=== PATIENT | female | born 1980 | race Caucasian/White ===

== ENCOUNTER 2023-08-07 18:33 | Emergency (ER) | payer OTHER, SELFPAY ==
[2023-08-07 18:36] VITALS: BP 143/91
--- NOTE | 2023-08-07 19:39 | ED.GENMED ---
History of Present Illness
General
Chief Complaint: Eye Problems
Source: patient
Time Seen by Provider: 08/07/23 19:22
Travel History
Have you had any contact with someone who has COVID-19?: No
Do you have any symptoms of coronavirus? Fever > 100 degrees, chills, cough, shortness of breath, sore throat, loss of taste or smell, muscle aches, or headache?: No
History of Present Illness
History of Present Illness:
43-year-old female presenting to the emergency department for evaluation of left eye pain, visual loss, redness and tearing. She states she has a history of corneal abrasion and that this feels similar. She does not use contact lenses or glasses.
She works as a take out waiter/waitress and stage she did not get anything into her eye or know how this may have occurred. She denies any facial rashes. No other concerns at this time.
Past History
Past History
ED Past Medical History: Psychiatric (manic depressive bipolar disorder) and Other (Premature delivers X3, Methadone)
ED Past Surgical History: and Gynecological (Cervical CA with Lep procedure X2)
Social History
Tobacco: Smoker
Alcohol: None
Drug: Former user (Former cocaine abuse, for opiate abuse)
Personal: Single
Living: with family
Employment: Not employed
Family History
Family History: Hypertension
Review of Systems
Review of Systems
All Other Systems: ROS reviewed and negative except as documented in HPI and ROS
Phy Exam
Physical Exam
Physical Exam:
GENERAL: Alert , in no apparent distress
EYE: conjunctiva cloudy on the left eye, erythematous and injected, gross vision unable to be assessed to the left eye, patient reports normal to the right eye
Visual acuity: Left eye 20/200, right eye 20/30
Fluorescein stain, uptake measuring approximately 2 mm at the 9 o'clock position along the lateral portion of the iris concerning for corneal ulcer. No dendritic lesions
Tonometry measurements: Affected left eye measures 11
Slit-lamp exam: Confirms suspicion for corneal ulceration
Head: Normocephalic atraumatic
NECK: Supple,
ENT: mmm.
LUNGS: no acute respiratory distress
NEUROLOGICAL: Alert and oriented
SKIN: Warm and dry, skin intact.
MUSCULOSKELETAL: well perfused.
PSYCH: Normal and appropriate interaction.
Scores
Heart Failure Risk
Heart Failure Risk Score: Not Applicable
Heart Score for Chest Pain Patients
STEMI patient?: Not applicable
Withdrawal Assessment of Alcohol
Withdrawal Assessment Completed?: Not applicable
Course
Orders/Labs/Results
Orders:
Orders
08/07/23 19:34
Fluorescein Sodium [Ful-Sumaya] 3 mg .ROUTE .STK-MED ONE
Tetracaine HCl [Tetracaine 0.5% Ophthalmic Solution] 1 drop .ROUTE .STK-MED ONE
08/07/23 19:39
Visual Acuity- Treatment ONCE
08/07/23 19:52
Ofloxacin [Ocuflox] See Dose Instructions OPHTH NOW STA
08/07/23 22:00
Ofloxacin [Ocuflox] See Dose Instructions OPHTH QID
Vital Signs
Initial and Last Documented VS:
Initial Vital Signs
Temp Pulse Resp BP Pulse Ox
97.9 F 91 16 143/91 99
08/07/23 18:36 08/07/23 18:36 08/07/23 18:36 08/07/23 18:36 08/07/23 18:36
Last Documented Vital Signs
Temp Pulse Resp BP Pulse Ox
97.9 F 91 16 143/91 99
08/07/23 18:36 08/07/23 18:36 08/07/23 18:36 08/07/23 18:36 08/07/23 18:36
MDM/Problems Addressed
Differential Diagnosis Includes:
Foreign body, corneal ulcer, corneal abrasion, glaucoma, iritis
MDM/Problems Addressed:
43-year-old female presenting emergency department with 2 days of left eye erythema and visual disturbance, significant pain as well. Tetracaine was instilled with full resolution of pain. Slit-lamp exam confirms suspicion for corneal ulceration.
Due to the nature of the injury as well as visual disturbance I did contact ophthalmology on-call, Dr. Brown, who would like patient prescribed moxifloxacin to be instilled 1 drop in the affected left eye every hour while patient is awake. He was
provided with the patient's tach information and will ensure that the office staff reaches out to the patient to get the patient into the office tomorrow for an appointment. Patient is agreeable with this plan. Aware of return precautions
emergency department. Stable for discharge home.
Of note, we did not have moxifloxacin in our formulary so patient was treated with Ocuflox here.
*Pulse Oximetry
Patient hypoxic: no
*Critical Care Note
Total Time (30-74mins, 75-104mins- exclusive of procedures): Not Applicable
Patient Management
Discussion with other providers: Stone Rigger
ED Attending Note
-
Portions of this chart may have been created with voice recognition software.� Occasional wrong word or��sound alike� substitutions may have occurred due to the inherent limitations of voice recognition software.
Discharge Plan
Departure
Patient Disposition: Home (Routine Discharge)
Date of Disposition: 08/07/23
Time of Disposition: 19:42
Patient with high blood pressure during this ER visit?: No
Discharge Problem:
Corneal ulcer of left eye
Instructions: Corneal Ulcer (DC)
Prescriptions:
New
moxifloxacin 0.5 % drops
See Rx Instructions .ROUTE .COMPLEX Qty: 5 0RF
Rx Instructions:
1 drp into the affected eye while awake
No Action
multivitamin [Daily Multiple] 1 EACH tablet
1 ea PO DAILY
methadone [Methadose] 100 MG/10 ML concentrate
100 mg PO DAILY
Methadone 100 mg/10 ml:
85 mg PO HS
oxycodone-acetaminophen 5 MG/325 MG tablet
1 - 2 tab PO Q3HPRN PRN (Reason: severe pain) Qty: 30 0RF
ibuprofen 600 MG tablet
600 mg PO Q4HPRN PRN (Reason: moderate pain/cramps) Qty: 0 0RF
Referrals:
Michelle Brown MD [Active] -
Interventions
Interventions:
*ED COVID-19 Vaccine History Last Done: 08/07/23 18:36
Discharge Date and Time
Print Language: GEORGIAN
[2023-08-07] MEDS: OCUFLOX 2 DROP OPHTH (20:11)
== END 2023-08-07 20:30 | disposition home or self-care (01) ==
LOC: EMR 18:33
PROVIDERS: EMERGENCY PHYSICIAN Emergency Medicine; FAMILY PHYSICIAN Internal Medicine
DX: H16.002 Unspecified corneal ulcer, left eye (principal); F31.9 Bipolar disorder, unspecified; F17.200 Nicotine dependence, unspecified, uncomplicated; Z85.41 Personal history of malignant neoplasm of cervix uteri
CPT/HCPCS: 99283

== ENCOUNTER 2025-01-25 23:38 | Emergency (ER) | payer OTHER, SELFPAY ==
[2025-01-25 23:38] VITALS: BMI 29.1
[2025-01-25 23:43] VITALS: BP 100/70
[2025-01-26] VITALS: BP 121/73
[2025-01-26 00:24] VITALS: BP 121/73
[2025-01-26 01:22] LABS: Hematocrit 34.3 % (37.0-47.0); Hemoglobin 11.7 g/dL (12.0-16.0); Mean Corp Hgb Conc. 34.1 g/dL (33.0-37.0); Mean Corpuscular Volume 81.7 fL (81.0-99.0); Nucleated Red Blood Cells % 0 %; Platelet Count 334 10^3/uL (130-400); Red Cell Dist. Width 14.1 % (11.5-14.5)
[2025-01-26] MEDS: DILAUDID 0.5 MG IV (01:22)
[2025-01-26] MEDS: NSS 1000 IV (01:26)
[2025-01-26 01:40] LABS: ALT (SGPT) 29 U/L (0-35); AST (SGOT) 23 U/L (14-36); Albumin 3.6 g/dl (3.5-5.0); Alkaline Phosphatase 124 U/L (38-126); Blood Urea Nitrogen 8 mg/dl (7-17); Calcium 8.4 mg/dl (8.4-10.2); Carbon Dioxide 26 mmol/L (22-30); Chloride 101 mmol/L (98-107); Estimated Creatinine Clearance 93 ml/min; Glucose 121 mg/dl (70-99); Lipase 28 U/L (23-300); Potassium 3.9 mmol/L (3.5-5.1); Sodium 130 mmol/L (135-145); Total Protein 6.7 g/dl (6.3-8.2); eGFR > 60.00
--- NOTE | 2025-01-26 01:50 | ED.GENMED ---
History of Present Illness
<Raven Gentile NP - Last Filed: 01/27/25 15:49>
General
Chief Complaint: Flank Pain
Source: patient
Exam Limitations: none
Time Seen by Provider: 01/26/25 00:47
Nursing documentation reviewed up to this point in time: agreed with
History of Present Illness
History of Present Illness:
Patient to emergency department for evaluation of RLQ, right flank pain. She reports her symptoms started last night and continued to worsen today. She reports urinary frequency. She denies fever or chills. Reports nausea but no vomiting.
Past History
<Raven Gentile NP - Last Filed: 01/27/25 15:49>
Past History
ED Past Medical History: Psychiatric (manic depressive bipolar disorder) and Other (Premature delivers X3, Methadone)
ED Past Surgical History: and Gynecological (Cervical CA with Lep procedure X2)
Social History
Tobacco: Smoker
Alcohol: None
Drug: Former user (Former cocaine abuse, for opiate abuse)
Personal: Single
Living: with family
Employment: Not employed
Family History
Family History: Hypertension
Review of Systems
<Raven Gentile SCAFFOLDING HELPER - Last Filed: 01/27/25 15:49>
Review of Systems
Allergies reviewed?: Yes
All Other Systems: ROS reviewed and negative except as documented in HPI and ROS
Constitutional: Reports no symptoms
EENT: Reports no symptoms
Respiratory: Reports no symptoms
Cardiac: Reports no symptoms
ABD/GI: Reports abdominal pain (RLQ, right flank)
: Reports dysuria, frequency and flank pain
Musculoskeletal: Reports no symptoms
Skin: Reports no symptoms
Neurological: Reports no symptoms
Psychiatric: Reports no symptoms
Phy Exam
<Raven Gentile NP - Last Filed: 01/27/25 15:49>
General Physical Exam
General Presentation: moderate distress
General age: appears stated age
General Skin: warm and dry
General Habitus: normal
General Mental: alert
Cardiovascular Exam
Cardiovascular Exam: regular rate/rhythm and no edema
Pulmonary Exam
Pulmonary Exam: lungs clear and no respiratory distress
Gastrointestinal Exam
Gastrointestinal Exam: soft, no organomegaly, no pulsatile mass and non distended
Palpation: left upper quadrant: No tenderness, left lower quadrant: No tenderness, right upper quadrant: No tenderness and right lower quadrant: Moderate tenderness
Musculoskeletal Exam
Musculoskeletal Exam: full ROM and neuro vasc intact
Skin Exam
Skin Exam: normal color, warm/dry and no rash
Psychiatric Exam
Psychiatric Exam: normal mood/affect
Sepsis
<Raven Gentile SCAFFOLDING HELPER - Last Filed: 01/27/25 15:49>
Sepsis Screening
Sepsis Assessment: Sepsis Ruled Out
Sepsis Screen
Sepsis Screen: Sepsis Ruled Out
Date: 01/27/25
Time: 15:49
Course
<Raven Gentile SCAFFOLDING HELPER - Last Filed: 01/27/25 15:49>
Orders/Labs/Results
Orders:
Orders
01/25/25 23:46
Urinalysis Reflex To Culture Urgent
Date Specimen was Collected: 01/25/25
Time Specimen was Collected: 23:46
01/26/25 00:51
HYDROmorphone [Dilaudid] 0.5 mg IV NOW STA
01/26/25 00:52
0.9% Sodium Chloride 1000 ml [Nss] 1,000 ml IV BOLUS
01/26/25 00:53
CT Abd/pelvis W Iv Cont Urgent
Comment:
Reason For Exam: RLQ abd. pain
01/26/25 01:11
Comprehensive Metabolic Panel Urgent
HCG, Serum Qualitative Screen Urgent
Comment: ADD ON
Lipase Urgent
01/26/25 01:12
Complete Blood Count/With Diff Urgent
01/26/25 02:02
Add On- LAB Urgent
Tests Added?: HCG serum qualitative
01/26/25 05:14
Urine Microscopic Reflex Cult Urgent
Urine Culture Urgent
KAMI Source: U
Specimen Description:
Date Specimen was Collected: 01/25/25
Time Specimen was Collected: 23:46
01/26/25 05:55
CefTRIAXone [Rocephin] 2,000 mg IV NOW STA
01/26/25 06:02
Sterile Water [Sterile Water For Injection] 20 ml .ROUTE .STK-MED
01/26/25 06:04
Ibuprofen [Motrin] 800 mg PO NOW STA
Abnormal Lab Results
01/26/25 01/26/25 01/26/25
01:11 01:12 05:14
WBC 13.2 H 10^3/uL
(4.8-10.8)
Hgb 11.7 L g/dL
(12.0-16.0)
Hct 34.3 L %
(37.0-47.0)
Abs Immat Gran (auto) 0.1 H 10^3/uL
(0-0.05)
Absolute Neuts (auto) 10.8 H 10^3/uL
(1.4-6.5)
Absolute Monos (auto) 1.0 H 10^3/uL
(0.1-0.6)
Immature Gran % 0.6 H %
(0-0.5)
Neutrophils % 82.0 H %
(42.2-75.2)
Lymphocytes % 8.8 L %
(20.5-51.1)
Sodium 130 L mmol/L
(135-145)
Glucose 121 H mg/dl
(70-99)
Urine Ketones 1+ A
(Negative)
Ur Occult Blood Reflex 3+ A
(Negative)
Urine Nitrite (Reflex) Positive A
(Negative)
Leukocyte Esterase Rfl 2+ A
(Negative)
Urine RBC 11-15 A /HPF
(0-2)
Urine WBC (Reflex) 40-50 A /HPF
(0-5)
Urine Bacteria (Reflex) Moderate A
(Negative)
Urine Albumin (Reflex) 2+ A
(Neg - Trace)
01/26/25 01:12
01/26/25 01:11
Vital Signs
Initial and Last Documented VS:
Initial Vital Signs
Temp Pulse Resp BP Pulse Ox
98.8 F 107 20 100/70 96
01/25/25 23:43 01/25/25 23:43 01/25/25 23:43 01/25/25 23:43 01/25/25 23:43
Last Documented Vital Signs
Temp Pulse Resp BP Pulse Ox
99.8 F 92 20 109/63 94
01/26/25 05:10 01/26/25 05:10 01/26/25 05:10 01/26/25 05:10 01/26/25 05:10
<Inocencia Mckinney, DO - Last Filed: 01/26/25 06:14>
Orders/Labs/Results
Orders:
Orders
01/25/25 23:46
Urinalysis Reflex To Culture Urgent
Date Specimen was Collected: 01/25/25
Time Specimen was Collected: 23:46
01/26/25 00:51
HYDROmorphone [Dilaudid] 0.5 mg IV NOW STA
01/26/25 00:52
0.9% Sodium Chloride 1000 ml [Nss] 1,000 ml IV BOLUS
01/26/25 00:53
CT Abd/pelvis W Iv Cont Urgent
Comment:
Reason For Exam: RLQ abd. pain
01/26/25 01:11
Comprehensive Metabolic Panel Urgent
HCG, Serum Qualitative Screen Urgent
Comment: ADD ON
Lipase Urgent
01/26/25 01:12
Complete Blood Count/With Diff Urgent
01/26/25 02:02
Add On- LAB Urgent
Tests Added?: HCG serum qualitative
01/26/25 05:14
Urine Microscopic Reflex Cult Urgent
Urine Culture Urgent
KAMI Source: U
Specimen Description:
Date Specimen was Collected: 01/25/25
Time Specimen was Collected: 23:46
01/26/25 05:55
CefTRIAXone [Rocephin] 2,000 mg IV NOW STA
01/26/25 06:02
Sterile Water [Sterile Water For Injection] 20 ml .ROUTE .STK-MED
01/26/25 06:04
Ibuprofen [Motrin] 800 mg PO NOW STA
Abnormal Lab Results
01/26/25 01/26/25 01/26/25
01:11 01:12 05:14
WBC 13.2 H 10^3/uL
(4.8-10.8)
Hgb 11.7 L g/dL
(12.0-16.0)
Hct 34.3 L %
(37.0-47.0)
Abs Immat Gran (auto) 0.1 H 10^3/uL
(0-0.05)
Absolute Neuts (auto) 10.8 H 10^3/uL
(1.4-6.5)
Absolute Monos (auto) 1.0 H 10^3/uL
(0.1-0.6)
Immature Gran % 0.6 H %
(0-0.5)
Neutrophils % 82.0 H %
(42.2-75.2)
Lymphocytes % 8.8 L %
(20.5-51.1)
Sodium 130 L mmol/L
(135-145)
Glucose 121 H mg/dl
(70-99)
Urine Ketones 1+ A
(Negative)
Ur Occult Blood Reflex 3+ A
(Negative)
Urine Nitrite (Reflex) Positive A
(Negative)
Leukocyte Esterase Rfl 2+ A
(Negative)
Urine RBC 11-15 A /HPF
(0-2)
Urine WBC (Reflex) 40-50 A /HPF
(0-5)
Urine Bacteria (Reflex) Moderate A
(Negative)
Urine Albumin (Reflex) 2+ A
(Neg - Trace)
01/26/25 01:12
01/26/25 01:11
Vital Signs
Initial and Last Documented VS:
Initial Vital Signs
Temp Pulse Resp BP Pulse Ox
98.8 F 107 20 100/70 96
01/25/25 23:43 01/25/25 23:43 01/25/25 23:43 01/25/25 23:43 01/25/25 23:43
Last Documented Vital Signs
Temp Pulse Resp BP Pulse Ox
99.8 F 92 20 109/63 94
01/26/25 05:10 01/26/25 05:10 01/26/25 05:10 01/26/25 05:10 01/26/25 05:10
<Raven Gentile NP - Last Filed: 01/27/25 15:49>
*Pulse Oximetry
SaO2: 97
Oxygen Mode of Delivery: Room air
<Inocencia Mckinney DO - Last Filed: 01/26/25 06:14>
*Radiology
Radiology exam reviewed: radiology read reviewed
*Pulse Oximetry
Patient hypoxic: no
*Critical Care Note
Total Time (30-74mins, 75-104mins- exclusive of procedures): Not Applicable
ED Attending Note
<Raven Gentile NP - Last Filed: 01/27/25 15:49>
-
Portions of this chart may have been created with voice recognition software.� Occasional wrong word or��sound alike� substitutions may have occurred due to the inherent limitations of voice recognition software.
<Inocencia Mckinney DO - Last Filed: 01/26/25 06:14>
ED Attending Note
Patient seen and examined by attending physician: Yes
I performed a history and physical exam of patient and discussed management with resident, I reviewed resident's note and agree with documented findings and plan of care.: Yes
ED Attending Note:
44-year-old woman presents with right flank pain that began yesterday, worse tonight. She notes urinary urgency and mild dysuria this evening. No history of similar episodes in the past. No history of UTI, pyelonephritis nor kidney stones in the
past.
Remote history of opioid use disorder, successfully treated with methadone which has since been discontinued since 2022.
Low-grade fever noted initially. Now has trended up to 100 �F.
44-year-old woman appears somewhat older than stated age, bright and alert, mildly ill in appearance but easily communicative.
HEENT: Oral mucosa is moist.
Abdomen: Soft, moderate tenderness right lateral mid abdomen, moderate tenderness right flank.
Labs notable for elevated white blood cell count of 13.2. Mild hyponatremia at 130. Normal BUN and creatinine. Normal lactic acid.
CT concerning for right pyelonephritis. Normal appendix.
Urinalysis consistent with UTI.
History and exam consistent with acute pyelonephritis.
Pain is markedly improved after 1 IV dose of Dilaudid. She denies nausea.
We discussed options for hospitalization for IV fluids, IV antibiotics and pain medication, versus trial of discharge to home with oral antibiotics, oral pain medication.
Patient elects to be discharged to home.
Will give an IV dose of Rocephin and plan for 14-day course of Augmentin.
Will write a prescription for ibuprofen 800 mg for as needed pain and fever as well as a small prescription for Percocet. Patient states she has had small prescriptions for narcotic pain medications without recurrent narcotic abuse issues.
Discussed importance of remaining well-hydrated on a daily basis and also discussed strict return precautions.
Discharge Plan
Departure
Patient Disposition: Home (Routine Discharge)
Date of Disposition: 01/26/25
Time of Disposition: 06:14
Patient with high blood pressure during this ER visit?: No
Condition: Good
Discharge Problem:
Acute pyelonephritis
Instructions: Urinary tract infection in adults - ED (DC)
Prescriptions:
New
amoxicillin-pot clavulanate 875-125 mg tablet
1 tab PO BID Qty: 28 0RF
ibuprofen 800 mg tablet
800 mg PO QIDPRN PRN (Reason: pain, fever) Qty: 30 0RF
oxycodone-acetaminophen [Percocet] 5-325 mg Tablet
1 tab PO Q6HPRN PRN (Reason: pain) Qty: 8 0RF
Discontinued
methadone [Methadose] 100 MG/10 ML concentrate
100 mg PO DAILY
Methadone 100 mg/10 ml:
85 mg PO HS
oxycodone-acetaminophen 5 MG/325 MG tablet
1 - 2 tab PO Q3HPRN PRN (Reason: severe pain) Qty: 30 0RF
ibuprofen 600 MG tablet
600 mg PO Q4HPRN PRN (Reason: moderate pain/cramps) Qty: 0 0RF
moxifloxacin 0.5 % drops
See Rx Instructions .ROUTE .COMPLEX Qty: 5 0RF
Rx Instructions:
1 drp into the affected eye while awake
No Action
multivitamin [Daily Multiple] 1 EACH tablet
1 ea PO DAILY
Referrals:
Hoang Johns MD [Family Provider, Internal Medicine] - Call in 1-3 days for appt
Stand Alone Forms: Return to Work
Interventions
Interventions:
*Risk Screen - Suicide Last Done: 01/25/25 23:43
*General Assessment Last Done: 01/26/25 00:46
*Neglect/Abuse Screening Last Done: 01/25/25 23:43
*ED COVID-19 Vaccine History Last Done: 01/25/25 23:43
*ED Influenza Vaccine History Last Done: 01/25/25 23:43
[facility] Fall Risk Assessment Tool Last Done: 01/25/25 23:38
*Nursing Disposition Last Done: 01/26/25 06:38
[facility]-Abcgta-Hskhlxwned Assessment Last Done: 01/26/25 00:24
ED-Female Genitourinary Assessment Last Done: 01/26/25 00:24
Discharge Date and Time
Discharge Date/Time: 01/26/25 06:39
Print Language: GREENLANDIC
[2025-01-26 02:00] VITALS: BP 116/72
[2025-01-26 02:33] LABS: HCG, Serum Qualitative Screen Negative
[2025-01-26 05:08] VITALS: BP 109/63
[2025-01-26 05:10] VITALS: BP 109/63
[2025-01-26 05:29] LABS: Urine Character Slightly Cloudy (Clear)
[2025-01-26 05:51] LABS: Urine Squamous Cell >30 /LPF (Few); Urine White Cell 40-50 /HPF (0-5)
[2025-01-26] MEDS: ROCEPHIN 2000 MG IV (06:03)
[2025-01-26] MEDS: MOTRIN 800 MG PO (06:10)
== END 2025-01-26 06:39 | disposition home or self-care (01) ==
LOC: EMR 23:38
PROVIDERS: Nurse Practitioner; EMERGENCY PHYSICIAN Emergency Medicine; FAMILY PHYSICIAN Internal Medicine
DX: N10 Acute pyelonephritis (principal); F17.200 Nicotine dependence, unspecified, uncomplicated
CPT/HCPCS: 96374; 96375; 99284; 74177; 80053; 81003; 81015; 83690; 84703; 85025; 87077; 87086; 87186; Q9967